=== PATIENT | male | born 1960 | race Caucasian/White ===

== ENCOUNTER 2018-03-22 10:45 | Outpatient (CLI) | payer OTHER | END 2018-03-22 11:04 | disposition home or self-care (01) | LOC: TOM 10:45 | DX: R10.84 Generalized abdominal pain (principal) ==

== ENCOUNTER 2018-05-18 09:07 | Outpatient (CLI) | payer OTHER | END 2018-05-18 09:08 | disposition home or self-care (01) | LOC: SONOGRAMA 09:07 | DX: I82.90 Acute embolism and thrombosis of unspecified vein (principal) ==

== ENCOUNTER → 2018-10-20 | Outpatient (CLI) | payer OTHER | END | disposition home or self-care (01) | LOC: NUCLEAR 10:00 | DX: I25.10 Atherosclerotic heart disease of native coronary artery without angina pectoris (principal) ==